=== PATIENT | male | born 1960 | race Caucasian/White ===

== ENCOUNTER 2017-02-19 02:43 | Emergency (ER) | payer SELFPAY ==
[~2017-02-19] VITALS: Ht 180.3 cm; Wt 83.9 kg
--- NOTE | 2017-02-19 03:08 | Emergency Room Report ---
History of Present Illness General Chief Complaint: Alcohol Intoxication Source: Patient, EMS Present Illness HPI Is a 57-year-old male who presents with chief pain injury. Has been drinking tonight. He said he walked into a door. Unknown loss of consciousness. He doesn't remember. He is been a nearby hotel and was walking in the lobby. Worker saw blood on his head and called 911. Patient denies any other complaint. No nausea no vomiting. No fever or chills. Denies suicidal thought homicidal thought. Did admit to taking a Xanax tonight. Allergies: Coded Allergies: No Known Allergies (Unverified , 02/19/17) Patient History Past Medical History: see triage record, old chart reviewed Past Surgical History: other Pertinent Family History: none Social History: Reports: alcohol use Immunizations: other Reviewed Nursing Documentation: PMH: Agreed, PSxH: Agreed Nursing Documentation-PMH Past Medical History: No History, Except For History Of Psychiatric Problem: Yes - anxiety Review of Systems Eye: Denies: eye pain, blurred vision ENT: Denies: ear pain, nose congestion, throat swelling Respiratory: Denies: cough, shortness of breath Cardiovascular: Denies: chest pain, palpitations Gastrointestinal: Denies: abdominal pain, diarrhea, nausea, vomiting Musculoskeletal: Denies: back pain, joint pain Skin: Denies: rash Neurological: Denies: headache, numbness Endocrine: Denies: increased thirst, increased urine Hematologic/Lymphatic: Denies: easy bruising All Other Systems: negative except mentioned in HPI Physical Exam Vital Signs Date Time Temp Pulse Resp B/P (MAP) Pulse Ox O2 Delivery O2 Flow Rate FiO2 02/19/17 02:36 86 18 136/88 100 Room Air vitals normal Sp02 EP Interpretation: reviewed, normal General Appearance: well appearing, no apparent distress, alert, other - Intoxicated Head: normocephalic, other - 2 cm superficial laceration to the temporal area. Well approximated. not deep enough for suture. Eyes: bilateral eye PERRL, bilateral eye EOMI ENT: hearing grossly normal, normal pharynx Neck: full range of motion, supple, no meningismus Respiratory: chest non-tender, lungs clear, normal breath sounds Cardiovascular #1: regular rate, rhythm, no murmur Gastrointestinal: normal bowel sounds, non tender, no mass, no organomegaly, no bruit, non-distended Musculoskeletal: back normal, normal range of motion Psychiatric: mood/affect normal Skin: warm/dry Medical Decision Making Diagnostic Impression: Primary Impression: Acute alcoholic intoxication Qualified Codes: F10.929 - Alcohol use, unspecified with intoxication, unspecified Additional Impressions: Head injury, acute Qualified Codes: S09.90XA - Unspecified injury of head, initial encounter Scalp laceration Qualified Codes: S01.01XA - Laceration without foreign body of scalp, initial encounter ER Course Patient with alcohol intoxication fall with head injury. Laceration is minor. No evidence of bleed. We'll observe for clinical sobriety and discharge. CT/MRI/US Diagnostic Results CT/MRI/US Diagnostic Results : Imaging Test Ordered: CT head Impression negative per radiologist. Last Vital Signs Date Time Temp Pulse Resp B/P (MAP) Pulse Ox O2 Delivery O2 Flow Rate FiO2 02/19/17 02:36 86 18 136/88 100 Room Air Status: improved Disposition: HOME, SELF-CARE Condition: Stable Patient Instructions: Alcohol Intoxication, [id number] Additional Instructions: Followup with your DrKarla in 7 days. Do not drink to excess. Return if symptom worsen. RENAE BOYLE M.D. Feb 19, 2017 03:08
[2017-02-19 05:31] VITALS: BP 136/88
--- NOTE | 2017-02-19 10:44 | Diagnostic Imaging Report ---
Indication: Headache and head trauma Technique: Contiguous 5 mm thick transaxial imaging of the head obtained in a Siemens Sensation [address] scanner. Soft tissue and bone windows generated. Automatic Exposure Control was utilized. Total Dose length Product (DLP): 1498.[address] Dose Index Volume (CTDIvol): 70.38 mGy Comparison: none Findings: The size and configuration of the cortical sulci, basal cisterns, and ventricles are within normal limits for age. There is no mass effect, midline shift, or edema identified. There is no evidence of acute hemorrhage or abnormal intra-axial or extra-axial fluid collections. The bones and soft tissues are unremarkable. Impression: No mass effect, edema or acute bleed. [facility] has communicated the preliminary results to the Emergency Department. Their findings are largely concordant with this report. The CT scanner at [facility] is accredited by the [employer] and the scans are performed using dose optimization techniques as appropriate to a performed exam including Automatic Exposure control.
== END 2017-02-19 05:34 | disposition home or self-care (01) ==
LOC: EDBD 02:43 → EMR 03:13
DX: F10.129 Alcohol abuse with intoxication, unspecified (principal); S01.81XA Laceration without foreign body of other part of head, initial encounter; W22.8XXA Striking against or struck by other objects, initial encounter; Y92.89 Other specified places as the place of occurrence of the external cause
CPT/HCPCS: 70450; 99284